=== PATIENT | female | born 1960 | race Caucasian/White ===

== ENCOUNTER 2023-10-01 06:54 | Day surgery (SDC) | payer MEDICAID, OTHER ==
[~2023-10-01] VITALS: Ht 152.4 cm; Wt 81.6 kg
[2023-10-01 07:48] VITALS: O2SAT 94
[2023-10-01] MEDS ORDERED: MIDAZOLAM HCL 5 MG/5 ML VIAL ONE (08:02)
[2023-10-01] MEDS ORDERED: MEPERIDINE 100 MG INJ. 100 MG/ML VIAL ONE (08:02)
[2023-10-01] MEDS ORDERED: SIMETHICONE 40 MG/0.6 ML ML ONE (08:02)
[2023-10-01 13:15] VITALS: BP_SYST 105; PULSE 80; RESP 18
== END 2023-10-01 09:41 | disposition home or self-care (01) ==
LOC: SGI 06:54 → SMU 06:57 → SGI 09:41
PROVIDERS: ATTEND Student in an Organized Health Care Education/Training Program
DX: Z12.11 Encounter for screening for malignant neoplasm of colon (principal); K29.50 Unspecified chronic gastritis without bleeding; K21.9 Gastro-esophageal reflux disease without esophagitis; K57.30 Diverticulosis of large intestine without perforation or abscess without bleeding; K64.8 Other hemorrhoids; Z79.899 Other long term (current) drug therapy
CPT/HCPCS: 45378; 43239; 99152; 88305; 88312; 88313; 99153; G0378; J2250; J2175